=== PATIENT | female | born 1960 | race Caucasian/White ===

== ENCOUNTER 2024-12-14 07:52 | Emergency (ER) | payer MEDICAID, SELFPAY ==
[2024-12-14 07:54] VITALS: BMI 18.2
[2024-12-14 08:03] VITALS: BP 118/75; PULSE 109; RESP 18; TEMP 36.9; O2SAT 97
--- NOTE | 2024-12-14 08:08 | PD.EDABDPN ---
ED Abdominal Pain RME/HPI General Chief Complaint: Abdominal Pain Stated complaint: SEVERE LLQ ABD PAIN X 1 WK, 03/24 Time seen by provider: 12/14/24 08:05 Arrival date/time: 12/14/24 07:52 64-year-old female with a history of vaginal and rectal prolapse presents to the emergency room with a chief complaint of 7 out of 10 left lower quadrant abdominal pain x 1 week Source: patient Mode of arrival: ambulatory Limitations: no limitations Related Data Home Medications ?Medication ?Instructions ?Recorded ?Confirmed bupropion HCl 300 mg 24 hr tablet, 300 mg PO QDAY 09/13/21 09/13/21 extended release hydrocodone 10 mg-acetaminophen 2 tab PO Q6H PRN Pain 09/13/21 09/13/21 325 mg tablet omeprazole 40 mg capsule,delayed 40 mg PO QDAY 09/13/21 09/13/21 release tizanidine 4 mg tablet 4 mg PO BID 09/13/21 09/13/21 Allergies Allergy/AdvReac Type Severity Reaction Status Date / Time No Known Allergies Allergy Verified 12/14/24 07:57 Review of Systems Review of Systems Systems Reviewed: All systems reviewed, normal except as documented Constitutional Constitutional: Reports system reviewed and no additional complaints, except as documented, Denies fatigue, Denies fever(s), Denies headache(s) and Denies weakness Eyes Eyes: Reports system reviewed and no additional complaints, except as documented, Denies blurry vision and Denies change in vision ENT Ears, Nose, Mouth, and Throat: Reports system reviewed and no additional complaints, except as documented, Denies otalgia, Denies headache(s), Denies nasal congestion, Denies throat swelling and Denies vertigo Cardiovascular Cardiovascular: Reports system reviewed and no additional complaints, except as documented, Denies chest pain, Denies dyspnea and Denies dyspnea on exertion Respiratory Respiratory: Reports system reviewed and no additional complaints, except as documented, Denies chest congestion, Denies cough, Denies dyspnea, Denies dyspnea on exertion and Denies wheezing Gastrointestinal Gastrointestinal: Reports system reviewed and no additional complaints, except as documented, Reports abdominal pain, Reports cramping, Reports nausea and Denies vomiting Genitourinary Genitourinary: Reports system reviewed and no additional complaints, except as documented Musculoskeletal Musculoskeletal: Reports system reviewed and no additional complaints, except as documented and Denies back pain Integumentary/Breasts Skin/Breast: Reports system reviewed and no additional complaints, except as documented and Denies wounds Neurologic Neurologic: Reports system reviewed and no additional complaints, except as documented, Denies confusion, Denies headache(s), Denies lack of coordination, Denies vertigo and Denies weakness Psychiatric Psychiatric: Reports system reviewed and no additional complaints, except as documented, Denies anxiety, Denies confusion, Denies depression, Denies paranoia, Denies suicidal ideation and Denies tactile hallucinations Endocrine Endocrine: Reports system reviewed and no additional complaints, except as documented and Denies fatigue Hematologic/Lymphatic Hematologic/Lymphatic: Reports system reviewed and no additional complaints, except as documented and Denies lymphadenopathy Allergic/Immunologic Allergic/Immunologic: Reports system reviewed and no additional complaints, except as documented, Denies throat swelling, Denies urticaria and Denies wheezing Past Medical History Past Medical History CARDIAC: Negative Congestive Heart Failure RESPIRATORY: Negative Chronic Obstructive Pulmonary Disease (COPD) GENITOURINARY: Negative Renal Disease ENDOCRINE: Negative Diabetes Mellitus Type 1 or Diabetes Mellitus Type 2 Social History SMOKING STATUS: Former smoker ED Exam General Limitations: Present no limitations General appearance: Present alert and in no apparent distress Head Head exam: Present atraumatic Eye Eye exam: Present normal appearance, PERRL and EOMI ENT ENT exam: Present normal exam, normal oropharynx and mucous membranes moist Neck Neck exam: Present normal inspection, full ROM and trachea midline Chest Chest inspection: Present normal inspection and symmetric chest wall rise Respiratory Respiratory exam: Present normal lung sounds bilaterally Cardiovascular Cardiovascular exam: Present regular rate, normal rhythm and normal heart sounds Abdominal Exam Abdominal exam: Present soft, tenderness, guarding and normal bowel sounds; Absent distention, rebound or rigidity Abdominal tenderness: Present LLQ and moderate Extremities Exam Extremities exam: Present normal inspection and full ROM Back Exam Back exam: Present normal inspection and full ROM Neurological Exam Neurological exam: Present alert, oriented X3 and CN II-XII intact Psychiatric Psychiatric exam: Present normal affect and normal mood Skin Skin exam: Present warm, dry, intact and normal color Course Quality Measures none Orders Category Date Time Status CT abdomen pelvis wo con Stat Exams 12/14/24 08:09 Ordered US pelvic complete Stat Exams 12/14/24 08:05 Stop Req CBC Stat Lab 12/14/24 08:05 Ordered CMP [Comprehensive Metabolic Panel] Stat Lab 12/14/24 08:05 Ordered Lipase Stat Lab 12/14/24 08:05 Ordered UA [Urinalysis] Stat Lab 12/14/24 08:05 Ordered Urine Culture Stat Lab 12/14/24 08:05 Ordered HYDROcodone*/APAP 5/325 [[place] 5/325] Med 12/14/24 08:05 Discontinued 1 tab PO X1 ONE Vital Signs Vital signs: Vital Signs Temperature 98.4 F 12/14/24 08:03 Pulse Rate 109 H 12/14/24 08:03 Respiratory Rate 18 12/14/24 08:03 Blood Pressure 118/75 12/14/24 08:03 Pulse Oximetry (%) 97 12/14/24 08:03 Oxygen Delivery Method Room Air 12/14/24 08:03 O2 saturation 97% within normal limits Abdominal Pain MDM MDM Narrative MDM Narrative:: 64-year-old female with a history of vaginal and rectal prolapse presents to the emergency room with a chief complaint of 7 out of 10 left lower quadrant abdominal pain x 1 week Patient data External records reviewed:: [facility] previous records Clinical information provided by:: patient Social determinants that could affect healthcare access:: none Patient has the following chronic illnesses:: No chronic illness How is presenting disease/condition affected by chronic disease/condition?: no chronic disease Evaluation data The following diagnostics were reviewed and interpreted by me:: lab results and radiology exam(s) Lab and/or radiology exams considered but not ordered:: Labs and radiology exams considered and ordered Interpretation Summary: CT abdomen and pelvis- Medications / Prescriptions Medications or Prescriptions considered but not ordered:: Medication given Medication administrations:: Medication Administration History Discontinued Medications Hydrocodone Bitart/Acetaminophen (Hydrocodone/Apap 5/325 Tablet) 1 tab PO X1 ONE Stop: 12/14/24 08:06 Medication given Consultations Consultation(s) initiated? (list below): No Diagnosis Differential diagnosis abdominal pain: abdominal pain, constipation, diverticulitis, gastroenteritis and small bowel obstruction Admission Indicated Admission indicated?: not indicated Admission Request Was there a request for admission?: No Disposition Plan Disposition Plan: Discharge Discharge Attestation Discharge Attestation: The patient and all family members were given an opportunity to ask questions and understood the discharge instructions. Discharge instructions specifically effects, indications for sooner follow up or return to the emergency department, and the expected course of current diagnosis. Patient condition: Stable Discharge Plan Prescriptions/Referrals Prescriptions/Med Rec: No Action tizanidine 4 mg tablet 4 mg PO BID hydrocodone-acetaminophen [[place]] 10-325 mg Tablet 2 tab PO Q6H PRN (Reason: Pain) omeprazole 40 mg capsule,delayed release(DR/EC) 40 mg PO QDAY bupropion HCl 300 mg tablet extended release 24 hr 300 mg PO QDAY Patient/Caregiver Discharge Instructions Print Language: Chinese
--- NOTE | 2024-12-14 08:09 | XR_ITS ---
Examination: CT abdomen and pelvis without contrast. Coronal 3-D reconstructions. Sagittal 2-D reconstructions. Date and time of exam:December 14, 2024, 0857 hours Comparison March 27, 2014 INDICATIONS: Lower abdominal pain and rectal pain beginning this morning CTDI: vol (mGy): 5.23 DLP: (mGycm): 253 Technique: Axial images of the abdomen have been obtained, 3 mm slice thickness Intravenous contrast material has not been administered. Low dose protocols were performed. One or more of the following dose reduction techniques were used; automated exposure control, adjustment of the mA and/or KV according to patient size, use of iterative reconstruction technique. Findings: No focal liver or splenic lesion Absent gallbladder Common hepatic duct 16 mm Aorta not enlarged No renal or ureteral calculi, no hydronephrosis Abundant stool throughout the colon No bowel obstruction Normal appendix No diverticulitis Atrophic uterus Urinary bladder intact Rectal wall thickening which is difficult to assess on this noncontrast study Prominent osteopenia with advanced disc narrowing L4-L5, L5-S1 IMPRESSION: Enlarged common hepatic duct, recommend hepatobiliary sonography follow-up Abundant stool throughout the colon Rectal wall thickening which is difficult to assess, given the noncontrast study, recommend direct inspection
[2024-12-14] MEDS: HYDROcodone/APAP 5/325 TABLET 1 TAB PO (08:16)
[2024-12-14 08:37] LABS: Basophils % (Auto) 1 % (0-2.5); Eosinophils # (Auto) 0.1 Thou/mm3 (0.0-0.5); Eosinophils % (Auto) 2 % (0-10); Hemoglobin 11.3 g/dL (12.0-16.0); Immature Granulocytes % (Auto) 0 % (0-0); Immature Granulocytes Auto 0.02 Thou/mm3 (0.00-0.00); Lymphocytes # (Auto) 1.7 Thou/mm3 (1.0-4.8); Lymphocytes % (Auto) 34 % (10-50); Mean Corpuscular HGB Conc 33.2 g/dl (31.0-37.0); Mean Corpuscular Hemoglobin 28.7 pg (25.0-35.0); Mean Corpuscular Volume 86 fL (80-100); Monocytes # (Auto) 0.5 Thou/mm3 (0.0-0.8); Monocytes % (Auto) 10 % (0-12); Neutrophils # (Auto) 2.6 Thou/mm3 (1.8-7.7); Neutrophils % (Auto) 54 % (37-80); Nucleated Red Blood Cell % 0 /100 WBC (0); Platelet Count 229 Thou/mm3 (140-440); RDW Standard Deviation 41.2 fL (36.4-46.3); Red Blood Count 3.94 Miln/mm3 (4.00-5.20); White Blood Count 4.9 Thou/mm3 (3.6-11.0)
[2024-12-14 08:52] LABS: Albumin, Serum 4.4 gm/dL (3.4-4.8); Albumin/Globulin Ratio 1.6 (1.2-2.2); Alkaline Phosphatase 63 U/L (46-116); Anion Gap 6 (7-16); Aspartate Amino Transferase 13 U/L (0-34); BUN/Creatinine Ratio 15 Ratio (12-20); Bilirubin,Total 0.3 mg/dL (0.3-1.2); Blood Urea Nitrogen 15 mg/dL (9-23); Calcium 9.2 mg/dL (8.3-10.6); Calcium (Corrected) 9.2 mg/dL (8.5-10.1); Chloride 105 mMol/L (98-107); Estimated Creatinine Clearance 49.5 mL/min (>60); Globulin 2.7 gm/dL (2.3-3.5); Glucose 95 mg/dL (74-106); Lipase 31 U/L (12-53); Osmolality,Calculated 283 (275-295); Potassium 3.5 mMol/L (3.4-5.1); Sodium 142 mMol/L (136-145); Total Protein 7.1 gm/dL (5.7-8.2); eGFR > 60 See Note
[2024-12-14 09:03] LABS: Alanine Aminotransferase < 7 U/L (10-49)
--- NOTE | 2024-12-14 10:19 | PD.EDRME ---
Rapid Medical Screening Exam RME Arrival date/time: 12/14/24 07:52 64-year-old female with a history of vaginal and rectal prolapse presents to the emergency room with a chief complaint of 7 out of 10 left lower quadrant abdominal pain x 1 week I have greeted and performed a focused initial assessment of this patient. A comprehensive ED assessment and evaluation of the patient, analysis of all test results, and completion of the medical decision making process will be conducted by additional ED providers. Chief Complaint: Abdominal Pain Time Seen by Provider: 12/14/24 08:05 Vital signs: Vital Signs Temperature 98.4 F 12/14/24 08:03 Pulse Rate 109 H 12/14/24 08:03 Respiratory Rate 18 12/14/24 08:03 Blood Pressure 118/75 12/14/24 08:03 Pulse Oximetry (%) 97 12/14/24 08:03 Oxygen Delivery Method Room Air 12/14/24 08:03 Vital signs reviewed by provider: Yes
--- NOTE | 2024-12-14 11:29 | PC.NURSE ---
No answer when called from lobby to take back to room
--- NOTE | 2024-12-14 11:30 | PC.NURSE ---
no answer when called from [facility]
--- NOTE | 2024-12-14 11:45 | PC.NURSE ---
no answer when called from [facility]
--- NOTE | 2024-12-14 12:22 | PC.NURSE ---
No answer when called from [facility]
== END 2024-12-14 12:22 | disposition left against medical advice (07) ==
PROVIDERS: Nurse Practitioner Family; Emergency Provider Emergency Medicine
DX: R10.32 Left lower quadrant pain (principal); Z53.29 Procedure and treatment not carried out because of patient's decision for other reasons
CPT/HCPCS: 36415; 74176; 80053; 80307; 81001; 83690; 85025; 87086; 99281; A9270